=== PATIENT | male | born 1985 | race Caucasian/White ===

== ENCOUNTER 2022-07-13 07:48 | Outpatient (CLI) | payer OTHER, SELFPAY ==
--- NOTE | ~2022-07-13 | MR_ITS ---
EXAMINATION: MR lumbar spine wo con DATE: 07/13/2022 08:36 INDICATION: Low back pain. TECHNIQUE: Magnetic resonance imaging (MRI) of the lumbar spine was performed without intravenous con trast. Sequences included sagittal T2-weighted FSE, sagittal T2-weighted FS FSE, sagittal T1-weighted FSE, and axial T2-weighted FSE. COMPARISON: None FINDINGS: There is 3 degrees dextrocurvature of lumbar spine. Vertebral body heights and intervertebr al disc heights are normal. The conus medullaris is at L1. The following disc levels are specifically discussed: L1-L2: There is a central protrusion. There is mild bilateral facet joint osteoarthritis. There is no neural foraminal stenosis. There is mild central canal stenosis. L2-L3: There is a central protrusion. There is no facet joint osteoarthritis. There is no neural fora jaime stenosis. There is mild central canal stenosis. L3-L4: The disc does not extend beyond the endplate margin. There is no facet joint osteoarthritis. T here is no neural foraminal stenosis. There is no central canal stenosis. L4-L5: The disc is mildly bulging. There is mild bilateral facet joint osteoarthritis. There is mild bilateral neural foraminal stenosis. There is mild central canal stenosis. L5-S1: The disc does not extend beyond the endplate margin. There is mild right facet joint osteoarth ritis. There is no neural foraminal stenosis. There is no central canal stenosis. IMPRESSION: 1. Mild lumbar spondylosis. Reviewed, dictated and finalized at location A. IMPRESSION: 1. Mild lumbar spondylosis.
== END 2022-07-13 07:49 | disposition home or self-care (01) ==
DX: M54.50 Low back pain, unspecified (principal)
CPT/HCPCS: 72148

== ENCOUNTER 2022-10-22 14:11 | Outpatient (CLI) | payer OTHER, SELFPAY ==
--- NOTE | ~2022-10-22 | XR_ITS ---
EXAMINATION: XR lumbar spine 2-3V DATE: 10/22/2022 14:41 INDICATION: Chronic low back pain. TECHNIQUE: 3 views of lumbar spine were obtained. COMPARISON: Lumbar spine MRI 07/13/2022 FINDINGS: There is 7 degrees dextrocurvature of thoracolumbar spine. Vertebral body heights and inter vertebral disc heights are normal. The facet joints are unremarkable. IMPRESSION: 1. Thoracolumbar dextrocurvature. Reviewed, dictated and finalized at location A. [employer]
== END 2022-10-22 14:12 | disposition home or self-care (01) ==
LOC: CHSIMG 14:20
DX: M54.9 Dorsalgia, unspecified (principal); M41.85 Other forms of scoliosis, thoracolumbar region
CPT/HCPCS: 72100